=== PATIENT | male | born 2005 | race Caucasian/White ===

== ENCOUNTER 2023-10-14 15:05 | Emergency (ER) | payer OTHER, SELFPAY ==
--- NOTE | ~2023-10-14 | XR_ITS ---
EXAMINATION: [id number] DATE: 10/14/2023 16:00 INDICATION: Left rib pain. TECHNIQUE: A frontal view of the chest and 2 views on 3 radiographs of the left ribs were obtained. COMPARISON: Chest 2 views 12/21/2011 FINDINGS: There is no pneumonia, pleural effusion, or pneumothorax. The heart size is normal. IMPRESSION: 1. No rib fracture. Reviewed, dictated and finalized at location E. T PROJECT MANAGER IMPRESSION: 1. No rib fracture.
[2023-10-14 15:21] VITALS: BP 142/59; PULSE 73; RESP 16; TEMP 37.2; O2SAT 100
--- NOTE | 2023-10-14 15:44 | ED.BACK ---
HPI - Back Pain/Injury General Chief Complaint: Back Pain/Injury Stated Complaint: Left Side Back/Shoulder Pain Time Seen by Provider: 10/14/23 15:44 Source: patient Mode of arrival: ambulatory Limitations: no limitations History of Present Illness HPI Narrative: 18-year-old male presents with complaint of left-sided back pain radiating into left upper back for 3 days. Denies injury but reports that he has lifting all day long at work, sometimes over 50 lb. Patient works for [employer]. Range of motion normal. Taking ibuprofen to treat pain. All systems reviewed and negative except as noted above. Related Data Allergies Allergy/AdvReac Type Severity Reaction Status Date / Time No Known Allergies Allergy Verified 10/14/23 15:11 Review of Systems Review of Systems: CONSTITUTIONAL: Denies fever, chills, or sweats. EYES: Denies visual changes, redness, or discharge. ENT: Denies rhinorrhea, congestion, sore throat, or otalgia. CARDIOVASCULAR: Denies chest pain, palpitations, or edema. RESPIRATORY: Denies cough or dyspnea. GASTROINTESTINAL: Denies abdominal pain, nausea, vomiting, or diarrhea. GENITOURINARY: Denies dysuria or hematuria. SKIN: Denies rash or itching. MUSCULOSKELETAL: Reports left-sided mid and upper back pain. Denies joint pain, or myalgia. NEUROLOGIC: Denies headache, numbness, or weakness. PSYCHIATRIC: Denies anxiety or depression. All other systems reviewed are negative, except as documented in HPI. PMFSH Comments At time of signature, agree with nursing past medical, surgical, social and family history. There is no relevant family history pertinent to the presenting complaint. Exam Narrative: GENERAL: This is a well-nourished, well-developed patient, in no apparent distress. HEAD: normocephalic, atraumatic. EYES: PERRL. Sclera clear/white. Vision is grossly intact. EARS: External ears normal NOSE: External nose normal NECK: Neck supple, non-tender without lymphadenopathy, masses or thyromegaly. CARDIOVASCULAR: Regular rate and rhythm without murmurs, gallops, or rubs. RESPIRATORY: Clear to auscultation. Breath sounds equal bilaterally. No wheezes, rales, or rhonchi. SKIN: warm, Dry, intact with no suspicious lesions or rash, good texture and turgor. NEURO: awake, alert, and oriented to person, place and time. There were no obvious focal neurologic abnormalities. EXTREMITIES: No joint tenderness, effusion, or edema noted. BACK: L posterior and lateral rib pain. tenderness to L rhomboid and trapezius of upper back Course Course Level of Care: Express Care Visit Vital Signs Vital signs: Vital Signs Temperature 37.2 C 10/14/23 15:21 Pulse Rate 73 10/14/23 15:21 Respiratory Rate 16 10/14/23 15:21 Blood Pressure 142/59 H 10/14/23 15:21 Pulse Oximetry 100 10/14/23 15:21 Oxygen Delivery Room Air 10/14/23 15:21 Temperature 37.2 C 10/14/23 15:21 Pulse Rate 73 10/14/23 15:21 Respiratory Rate 16 10/14/23 15:21 Blood Pressure 142/59 H 10/14/23 15:21 Pulse Oximetry 100 10/14/23 15:21 Oxygen Delivery Room Air 10/14/23 15:21 reviewed MDM - Back Pain/Injury MDM Narrative Medical decision making narrative: left rib x-ray negative for fracture. Patient has normal range of motion. Will treat for muscle strain with ibuprofen and methocarbamol. Recommend ice and heat at home. Patient is aware of diagnosis, understands and agrees to treatment plan. Anticipatory guidance given. Patient agrees to follow-up as directed and is aware of reasons to seek care at the emergency department. Portions of this record may have been created with voice recognition software Differential Diagnosis Differential diagnosis: Likely thoracic back pain Imaging Data My impression: Agree with radiologist Radiologist's impression: EXAMINATION: [id number] DATE: 10/14/2023 16:00 INDICATION: Left rib pain. TECHNIQUE: A frontal view of t
== END 2023-10-14 16:35 | disposition home or self-care (01) ==
PROVIDERS: Emergency Provider Nurse Practitioner Family
DX: S29.012A Strain of muscle and tendon of back wall of thorax, initial encounter (principal); X58.XXXA Exposure to other specified factors, initial encounter
CPT/HCPCS: 71101; 99213; G0463

== ENCOUNTER 2024-01-30 21:25 | Emergency (ER) | payer SELFPAY ==
--- NOTE | ~2024-01-30 | CT_ITS ---
EXAMINATION: CT brain wo con DATE: 01/30/2024 22:20 INDICATION: Head injury and photophobia. TECHNIQUE: Computed tomography (CT) of the head was performed without intravenous contrast. Sagittal and coronal reconstructions were performed. The dose-length product was 382.52 mGy-cm. COMPARISON: None FINDINGS: No acute intracranial hemorrhage, acute infarction or abnormal extra axial fluid collection. Ventricl es are normal and symmetric. No mass/mass effect. The orbits, paranasal sinuses and mastoid air cells are normal. IMPRESSION: 1. Normal head CT. Reviewed, dictated and finalized at location A. IMPRESSION: 1. Normal head CT.
--- NOTE | ~2024-01-30 | CT_ITS ---
EXAMINATION: CT cervical spine wo con DATE: 01/30/2024 22:20 INDICATION: Head and neck injury TECHNIQUE: Computed tomography (CT) of the cervical spine was performed without intravenous contrast. Automated exposure control and iterative reconstruction technique were employed. The dose-length pro duct was 382.52 mGy-cm. COMPARISON: None FINDINGS: 7 degrees cervicothoracic levocurvature. Mild reversal of the normal lower cervical lordosis which co uld be positional or due to muscle spasm. Vertebral body heights are normal. No fracture. Disc height s are normal. Cervical facet and uncovertebral joints are unremarkable. No central canal or neural fo raminal stenosis. Cervical soft tissues are unremarkable. Visualized apices of lungs are clear. IMPRESSION: 1. 7 degrees cervicothoracic levocurvature and mild reversal of the normal lower cervical lordosis wh ich could be positional or due to muscle spasm. No other acute osseous abnormality. Reviewed, dictated and finalized at location A. IMPRESSION: 1. 7 degrees cervicothoracic levocurvature and mild reversal of the normal lowe r cervical lordosis which could be positional or due to muscle spasm. No other acute osseous abnormality.
[2024-01-30 21:43] VITALS: BP 150/95; PULSE 84; RESP 16; TEMP 36.9; O2SAT 98
--- NOTE | 2024-01-30 23:54 | ED.GENADULT ---
HPI - General Adult General Chief complaint: Head Injury Stated complaint: possible concussion Time Seen by Provider: 01/30/24 22:47 History of Present Illness HPI narrative: Patient is a 18-year-old gentleman who presents emergency department with chief complaint of head injury. Patient reports that he was in a wrestling competition and was kicked in the head and his head while wrestling. Patient did not remember the incident and did not recall coming to the hospital did report to some nausea and vomiting afterwards were report that starting to improve patient reports no visual changes and is alert oriented currently Related Data Allergies Allergy/AdvReac Type Severity Reaction Status Date / Time No Known Allergies Allergy Verified 01/30/24 21:26 Review of Systems Review of Systems: A 10 system review of systems was completed on the patient and is negative except for what is stated in the HPI. Nursing and ancillary documentation was reviewed. Exam Narrative: GENERAL: Well-appearing, well-nourished, and in no acute distress. HEAD: Normocephalic, atraumatic. EYES: PERRLA and EOMI. Patient has exotropia of the right eye ENT: Nares clear, no rhinorrhea or epistaxis. Mucous membranes moist. NECK: Supple. CHEST: Clear to auscultation. No respiratory distress. HEART: Regular rate and rhythm. No murmur heard. Normal peripheral pulses. ABDOMEN: Soft, nontender, nondistended, normal active bowel sounds. EXTREMITIES: Normal range of motion. No edema. SKIN: Warm, dry, no rash. NEURO: No focal deficits. Alert and oriented x3. PSYCH: Normal mood and affect. Course Vital Signs Vital signs: Vital Signs Temperature 36.9 C 01/30/24 21:43 Pulse Rate 84 01/30/24 21:43 Respiratory Rate 16 01/30/24 21:43 Blood Pressure 150/95 H 01/30/24 21:43 Pulse Oximetry 98 01/30/24 21:43 Temperature 36.9 C 01/30/24 21:43 Pulse Rate 84 01/30/24 21:43 Respiratory Rate 16 01/30/24 21:43 Blood Pressure 150/95 H 01/30/24 21:43 Pulse Oximetry 98 01/30/24 21:43 Medical Decision Making MDM Narrative Medical decision making narrative: Differential diagnosis includes concussion, head injury, intracranial hemorrhage, cervical spine fracture CT head showed no evidence of acute abnormality CT C-spine showed no evidence of fracture. Vital Signs Vital Signs: Vital Signs Temperature 36.9 C 01/30/24 21:43 Pulse Rate 84 01/30/24 21:43 Respiratory Rate 16 01/30/24 21:43 Blood Pressure 150/95 H 01/30/24 21:43 Pulse Oximetry 98 01/30/24 21:43 Temperature 36.9 C 01/30/24 21:43 Pulse Rate 84 01/30/24 21:43 Respiratory Rate 16 01/30/24 21:43 Blood Pressure 150/95 H 01/30/24 21:43 Pulse Oximetry 98 01/30/24 21:43 Discharge Plan Discharge Clinical Impression: Closed head injury, Concussion Patient Disposition: Home, Self-Care Condition: Stable Instructions: Antibiotic Form, Concussion (ED), Head Injury (ED) Prescriptions: No Action methocarbamol 500 mg tablet 500 mg PO Q6H PRN (Reason: muscle pain/spasm) Qty: 30 0RF Follow-up/Referrals: Gomez Roberson MD [Physician] - PHYSICIAN,LOSS CLAIM CLERK [Primary Care Provider] - Time of Disposition: 23:57
[2024-01-30 23:56] VITALS: BP 123/82; PULSE 73; RESP 15; O2SAT 99
== END 2024-01-31 00:06 | disposition home or self-care (01) ==
PROVIDERS: Emergency Provider Emergency Medicine
DX: S06.0XAA Concussion with loss of consciousness status unknown, initial encounter (principal); W51.XXXA Accidental striking against or bumped into by another person, initial encounter; Y93.72 Activity, wrestling
CPT/HCPCS: 70450; 72125; 99284

== ENCOUNTER 2025-01-18 16:01 | Emergency (ER) | payer SELFPAY ==
--- NOTE | ~2025-01-18 | CT_ITS ---
CT abdomen pelvis wo con Ordering provider: Lizette Cary PA-C History: 19 years Male with . R flank pain hematuria . Comparison: None. Technique: CT abdomen and pelvis without IV and without oral contrast. Automated exposure control and iterative reconstruction technique were employed. The dose-length product was 202.10 mGy-cm. Findings: VISUALIZED LOWER CHEST: Normal. UPPER ABDOMINAL ORGANS: Liver: Hepatomegaly. Gallbladder: Normal. Spleen: Normal. Stomach/duodenum: Normal. Pancreas: Normal. Adrenals: Normal. Kidneys: Normal. PELVIC ORGANS: The bladder is underfilled. BOWEL AND MESENTERY: Colon: No evidence of diverticulitis.. No evidence of appendicitis. Small Bowel: Normal. No obstruction. Peritoneum/mesentery: No free air or free fluid. No mesenteric lymphadenopathy. RETROPERITONEUM: Normal aorta. No retroperitoneal lymphadenopathy. MUSCULOSKELETAL: Superficial soft tissues: The superficial soft tissues are normal. Bones: Normal spine. IMPRESSION: 1. No evidence of appendicitis, diverticulitis or intestinal obstruction. 2. Hepatomegaly. Reviewed, dictated and finalized at location A.
[2025-01-18 16:05] VITALS: BP 133/80; PULSE 60; RESP 16; TEMP 36.8; O2SAT 100
--- NOTE | 2025-01-18 16:47 | ED_ITS ---
HPI - Male Genitourinary General Chief complaint: Urogenital-Male <MAYCO Feliciano Last Filed: 01/18/25 16:52> Stated complaint: hematuria <MAYCO Feliciano Last Filed: 01/18/25 16:52> Time Seen by Provider: 01/18/25 16:47 <MAYCO Feliciano Last Filed: 01/18/25 16:52> Focused HPI: Patient is a 19 y/o male who presents to the ED with c/o hematuria. Patient reports he woke up around 330am with blood in his urine. Went to work and continued to have blood in his urine, states it looked like dark tea. Reports mild dysuria. Pain on his R flank for the past couple days. Does note he does independent wrestling and may have injured his back with that. No previous hx of kidney stones. Reports nausea, vomiting this morning. Denies fevers. Denies testicular pain. Denies concern for STDs. GENERAL: Well-appearing, well-nourished, and in no acute distress. HEAD: Normocephalic, atraumatic. CHEST: Clear to auscultation. ?No respiratory distress. HEART: Regular rate and rhythm.? MSK: Mild TTP throughout R lower thoracic region. +CVA on R NEURO: ?Alert and oriented x3. Patient screened in triage and initial orders placed.? ?Additional care and disposition to be based upon?diagnostic testing and treatment. <MAYCO Feliciano Last Filed: 01/18/25 16:52> Source: patient <MAYCO Feliciano Last Filed: 01/18/25 16:52> Mode of arrival: ambulatory <MAYCO Feliciano Last Filed: 01/18/25 16:52> Limitations: no limitations <MAYCO Feliciano Last Filed: 01/18/25 16:52> History of Present Illness HPI Narrative: Agree with the HPI above. Well select at the patient was wrestling and a competition and had exerted himself physically and symptoms start afterwards with some back pain worse on the right flank. No history of kidney stones, no history rhabdomyolysis. Feels dehydrated. <Dalton Infante MD - Last Filed: 01/18/25 18:52> Related Data Allergies/Adverse reactions: Allergies Allergy/AdvReac Type Severity Reaction Status Date / Time No Known Allergies Allergy Verified 01/18/25 17:38 <Lizette Cary PA-C - Last Filed: 01/18/25 16:52> Review of Systems 2 Review of Systems: As reviewed above in HPI <Dalton Infante MD - Last Filed: 01/18/25 18:52> Exam 2 Narrative: GENERAL: Well-appearing, well-nourished, and in no acute distress. HEAD: Normocephalic, atraumatic. CHEST: Clear to auscultation. ?No respiratory distress. HEART: Regular rate and rhythm.? MSK: Mild TTP throughout R lower thoracic region. +CVA on R NEURO: ?Alert and oriented x3. <Dalton Infante MD - Last Filed: 01/18/25 18:52> Course Vital Signs Vital signs: Vital Signs Temperature 36.8 C 01/18/25 16:05 Pulse Rate 60 01/18/25 16:05 Respiratory Rate 16 01/18/25 16:05 Blood Pressure 133/80 01/18/25 16:05 Pulse Oximetry 100 01/18/25 16:05 Oxygen Delivery Room Air 01/18/25 16:05 Temperature 36.8 C 01/18/25 16:05 Pulse Rate 60 01/18/25 16:05 Respiratory Rate 16 01/18/25 16:05 Blood Pressure 133/80 01/18/25 16:05 Pulse Oximetry 100 01/18/25 16:05 Oxygen Delivery Room Air 01/18/25 16:05 <Lizette Cary PA-C - Last Filed: 01/18/25 16:52> Vital Signs Temperature 36.8 C 01/18/25 16:05 Pulse Rate 60 01/18/25 16:05 Respiratory Rate 16 01/18/25 16:05 Blood Pressure 133/80 01/18/25 16:05 Pulse Oximetry 100 01/18/25 16:05 Oxygen Delivery Room Air 01/18/25 16:05 Temperature 36.8 C 01/18/25 16:05 Pulse Rate 60 01/18/25 16:05 Respiratory Rate 16 01/18/25 16:05 Blood Pressure 133/80 01/18/25 16:05 Pulse Oximetry 100 01/18/25 16:05 Oxygen Delivery Room Air 01/18/25 16:05 <Dalton Infante MD - Last Filed: 01/18/25 18:52> MDM - Male Genitourinary MDM Narrative Medical decision making narrative: MSE by ABNER in triage. <Lizette Cary PA-C - Last Filed: 01/18/25 16:52> MSE by ABNER in triage. 19-year-old male presenting with dark urine and back pain. Patient states that he was physically exerting himself over last few days during a wrestling match competition and hurt his back. He has also been having what he described as blood in his urine and provides me a picture with what appears to be potential hematuria verses discoloration from protein such as rhabdomyolysis. He has mild tenderness to palpation reproducible on examination the right CVA but no overlying skin changes. He is hemodynamically stable. States he feels dehydrated and has only membranes. CT scan of the abdomen pelvis without contrast obtained as well as blood work including CBC, CMP, urinalysis and CPK level. Differential diagnosis includes muscle breakdown rhabdomyolysis, kidney stone, hematuria from urinary tract infection, cystitis. Patient CT scan was independently reviewed and also interpreted by Radiology. No signs of any kidney stones, no appendicitis, diverticulitis or intestinal obstruction. He has some mild hepatomegaly. His CPK is negative, normal kidney function, no leukocytosis. No significant anemia. Given patient's urinalysis findings with blood, bacteria and signs of infection he was treated with Rocephin for suspected urinary tract infection with potential hemorrhagic cystitis. His CT scan vitals are reassuring and he can be safely discharged home with a course of Bactrim as well as a dose of Diflucan given the yeast present. Urine culture sent. Follow up with PCP on outpatient basis. Patient presently does not have a PCP so one will be given to him in his discharge instructions. Patient re-evaluated and comfortable with the plan of care, has no history of allergies to antibiotics and safe for discharge at this time. <Dalton Infante MD - Last Filed: 01/18/25 18:52> Medical Records Attestation: I reviewed the patient's medical records. <Dalton Infante MD - Last Filed: 01/18/25 18:52> Lab Data Attestation: I reviewed the patient's lab results. <Dalton Infante MD - Last Filed: 01/18/25 18:52> Result diagrams: 01/18/25 16:52 01/18/25 16:52 <Lizette Cary PA-C - Last Filed: 01/18/25 16:52> Labs: Lab Results 01/18/25 01/18/25 01/18/25 Range/Units 16:52 17:01 17:40 WBC 7.0 (4.5-10.0) K/mm3 RBC 4.73 (4.6-6.20) M/mm3 Hgb 13.8 L (14.0-18.0) g/dL Hct 41.7 L (42.0-52.0) % MCV 88.2 (80-100) fl MCH 29.2 (26-34) pg MCHC 33.1 (32-36) g/dl RDW 12.1 (11.5-14.5) % Plt Count 202 (150-375) k/mm3 MPV 10.2 (7.4-10.4) fl Immature Gran % (Auto) 0.4 (0-0.5) % Neut % (Auto) 67.3 (45.5-73.1) % Lymph % (Auto) 21.8 (18.3-44.2) % [place] % (Auto) 9.7 H (2.6-8.5) % Eos % (Auto) 0.7 (0-4.4) % Baso % (Auto) 0.1 L (0.2-1.2) % Lymph # (Auto) 1.52 (0.9-3.2) K/mm3 [place] # (Auto) 0.7 H (0.1-0.6) K/mm3 Eos # (Auto) 0.1 (0-0.3) K/mm3 Baso # (Auto) 0.0 (0.0-0.1) K/mm3 Abs Immat Gran (auto) 0.03 (0.00-0.031) K/mm3 Absolute Neuts (auto) 4.7 (1.3-6.7) K/mm3 Absolute Nucleated RBC 0.000 (0.0-0.012) K/mm3 Nucleated RBC % 0.0 (0.0-0.2) % Sodium 141 (137-145) mmol/L Potassium 3.8 (3.4-5.0) mmol/L Chloride 103 (98-107) mmol/L Carbon Dioxide 25 (22-30) mmol/L Anion Gap 13 H (4-12) mmol/L BUN 14 (9-20) mg/dL Creatinine 1.08 (0.7-1.3) mg/dL Estim Creat Clear Calc Not Reportable Estimated GFR > 60 (59 - ) Glucose 95 (65-110) mg/dL Calcium 10.0 (8.4-10.2) mg/dL Total Bilirubin 0.5 (0.2-1.3) mg/dL AST 27 (17-59) U/L ALT 17 (6-50) U/L Alkaline Phosphatase 52 (38-126) U/L Total Creatine Kinase 138 (55-170) U/L Total Protein 8.0 (6.3-8.2) g/dL Albumin 4.6 (3.5-5.1) g/dL Urine Color [place] H (Yellow) Urine Appearance Turbid H (Clear) Urine pH 5.5 (5.0-9.0) Ur Specific [place] 1.038 H (1.001-1.035) Urine Protein 2+ H (Negative) mg/dL Urine Glucose (UA) Negative (Negative) mg/dL Urine Ketones 2+ H (Negative) mg/dL Ur Blood (Man) 2+ H (Negative) Urine Nitrate Positive H (Negative) Urine Bilirubin 1+ H (Negative) Urine Urobilinogen 1.0 (<2.0) mg/dL Leukocyte Esterase Rfl 2+ H (Negative) BLUE/UL Urine RBC >100 H (0-2) /hpf Urine WBC 51-100 H (0-3) /hpf Ur Squamous Epith Cells Occasional (Few) /hpf Urine Bacteria None seen /hpf Urine Casts 11-20 Hyaline Casts Present (None) /lpf Urine Yeast (Budding) Present H (None) /hpf <Lizette Cary PA-C - Last Filed: 01/18/25 16:52> Lab Results 01/18/25 01/18/25 01/18/25 Range/Units 16:52 17:01 17:40 WBC 7.0 (4.5-10.0) K/mm3 RBC 4.73 (4.6-6.20) M/mm3 Hgb 13.8 L (14.0-18.0) g/dL Hct 41.7 L (42.0-52.0) % MCV 88.2 (80-100) fl MCH 29.2 (26-34) pg MCHC 33.1 (32-36) g/dl RDW 12.1 (11.5-14.5) % Plt Count 202 (150-375) k/mm3 MPV 10.2 (7.4-10.4) fl Immature Gran % (Auto) 0.4 (0-0.5) % Neut % (Auto) 67.3 (45.5-73.1) % Lymph % (Auto) 21.8 (18.3-44.2) % [place] % (Auto) 9.7 H (2.6-8.5) % Eos % (Auto) 0.7 (0-4.4) % Baso % (Auto) 0.1 L (0.2-1.2) % Lymph # (Auto) 1.52 (0.9-3.2) K/mm3 [place] # (Auto) 0.7 H (0.1-0.6) K/mm3 Eos # (Auto) 0.1 (0-0.3) K/mm3 Baso # (Auto) 0.0 (0.0-0.1) K/mm3 Abs Immat Gran (auto) 0.03 (0.00-0.031) K/mm3 Absolute Neuts (auto) 4.7 (1.3-6.7) K/mm3 Absolute Nucleated RBC 0.000 (0.0-0.012) K/mm3 Nucleated RBC % 0.0 (0.0-0.2) % Sodium 141 (137-145) mmol/L Potassium 3.8 (3.4-5.0) mmol/L Chloride 103 (98-107) mmol/L Carbon Dioxide 25 (22-30) mmol/L Anion Gap 13 H (4-12) mmol/L BUN 14 (9-20) mg/dL Creatinine 1.08 (0.7-1.3) mg/dL Estim Creat Clear Calc Not Reportable Estimated GFR > 60 (59 - ) Glucose 95 (65-110) mg/dL Calcium 10.0 (8.4-10.2) mg/dL Total Bilirubin 0.5 (0.2-1.3) mg/dL AST 27 (17-59) U/L ALT 17 (6-50) U/L Alkaline Phosphatase 52 (38-126) U/L Total Creatine Kinase 138 (55-170) U/L Total Protein 8.0 (6.3-8.2) g/dL Albumin 4.6 (3.5-5.1) g/dL Urine Color [place] H (Yellow) Urine Appearance Turbid H (Clear) Urine pH 5.5 (5.0-9.0) Ur Specific [place] 1.038 H (1.001-1.035) Urine Protein 2+ H (Negative) mg/dL Urine Glucose (UA) Negative (Negative) mg/dL Urine Ketones 2+ H (Negative) mg/dL Ur Blood (Man) 2+ H (Negative) Urine Nitrate Positive H (Negative) Urine Bilirubin 1+ H (Negative) Urine Urobilinogen 1.0 (<2.0) mg/dL Leukocyte Esterase Rfl 2+ H (Negative) BLUE/UL Urine RBC >100 H (0-2) /hpf Urine WBC 51-100 H (0-3) /hpf Ur Squamous Epith Cells Occasional (Few) /hpf Urine Bacteria None seen /hpf Urine Casts 11-20 Hyaline Casts Present (None) /lpf Urine Yeast (Budding) Present H (None) /hpf <Dalton Infante MD - Last Filed: 01/18/25 18:52> Imaging Data Attestation: I personally reviewed and interpreted this imaging study as follows: < Dalton Infante MD - Last Filed: 01/18/25 18:52> My impression: Impressions Abdomen/Pelvis CT 01/18/25 17:09 IMPRESSION: 1. No evidence of appendicitis, diverticulitis or intestinal obstruction. 2. Hepatomegaly. <Dalton Infante MD - Last Filed: 01/18/25 18:52> Discharge Plan Discharge Clinical Impression: Urinary tract infection, Hematuria <Lizette Cary PA-C - Last Filed: 01/18/25 16:52> Patient Disposition: Home <Lizette Cary PA-C - Last Filed: 01/18/25 16:52> Condition: Stable <MAYCO Feliciano Last Filed: 01/18/25 16:52> Instructions: Antibiotic Form, Urinary Tract Infection in Men (ED) <MAYCO Feliciano Last Filed: 01/18/25 16:52> Additional Instructions: Your laboratory studies and CT scan are reassuring but your urinalysis shows evidence of urinary tract infection which could also be causing something called hemorrhagic cystitis given the blood component. We will treat this with antibiotics and refer you to your primary doctor for evaluation on outpatient basis. Return with any persistent, new or worsening emergent concerns. <Lizette Cary PA-C - Last Filed: 01/18/25 16:52> Patient Language: Yoruba <MAYCO Feliciano Last Filed: 01/18/25 16:52> Prescriptions: New sulfamethoxazole-trimethoprim [Bactrim DS] 800-160 mg tablet 1 tablet PO Q12H Qty: 14 0RF No Action methocarbamol 500 mg tablet 500 mg PO Q6H PRN (Reason: muscle pain/spasm) Qty: 30 0RF <Lizette Cary PA-C - Last Filed: 01/18/25 16:52> Follow-up/Referrals: Suhail Castaneda DO [Physician] - 3 Days (Establish PCP) PHYSICIAN,DIRECTOR OF HOTEL OPERATIONS [Primary Care Provider] - <Lizette Cary PA-C - Last Filed: 01/18/25 16:52> Time of Disposition: 18:50 <MAYCO Feliciano Last Filed: 01/18/25 16:52> 18:50 <Dalton Infante MD - Last Filed: 01/18/25 18:52>
[2025-01-18 17:02] LABS: Basophils Percent Auto 0.1 % (0.2-1.2); Eosinophils Absolute Auto 0.1 K/mm3 (0-0.3); Eosinophils Percent Auto 0.7 % (0-4.4); Hematocrit 41.7 % (42.0-52.0); Hemoglobin 13.8 g/dL (14.0-18.0); Immature Granulocyte Absolute 0.03 K/mm3 (0.00-0.031); Immature Granulocyte Percent A 0.4 % (0-0.5); Lymphocytes Absolute Auto 1.52 K/mm3 (0.9-3.2); Lymphocytes Percent Auto 21.8 % (18.3-44.2); Mean Corpuscular HGB Conc 33.1 g/dl (32-36); Mean Corpuscular Hemoglobin 29.2 pg (26-34); Mean Corpuscular Volume 88.2 fl (80-100); Mean Platelet Volume 10.2 fl (7.4-10.4); Monocytes Absolute Auto 0.7 K/mm3 (0.1-0.6); Monocytes Percent Auto 9.7 % (2.6-8.5); Neutrophils Absolute Auto 4.7 K/mm3 (1.3-6.7); Neutrophils Percent Auto 67.3 % (45.5-73.1); Platelet Count Result 202 k/mm3 (150-375); Red Blood Count 4.73 M/mm3 (4.6-6.20); Red Cell Distribution Width 12.1 % (11.5-14.5)
[2025-01-18 17:20] LABS: Bacteria Urine None Seen /hpf; Budding Yeast Urine Present /hpf; Hyaline Casts Urine Present /lpf; RBC Urine >100 /hpf (0-2); Squamous Epithelial Cell Urine Occasional /hpf (Few); WBC Urine 51-100 /hpf (0-3)
[2025-01-18 17:29] LABS: Alanine Aminotransferase 17 U/L (6-50); Albumin Level 4.6 g/dL (3.5-5.1); Alkaline Phosphatase 52 U/L (38-126); Anion Gap 13 mmol/L (4-12); Aspartate Amino Transferase 27 U/L (17-59); Bilirubin,Total 0.5 mg/dL (0.2-1.3); Blood Urea Nitrogen 14 mg/dL (9-20); Carbon Dioxide 25 mmol/L (22-30); Chloride 103 mmol/L (98-107); Estimated Glomerular Filt Rate > 60; Glucose 95 mg/dL (65-110); Potassium 3.8 mmol/L (3.4-5.0); Sodium 141 mmol/L (137-145)
[2025-01-18] MEDS: LACTATED RINGERS 1,000 ML 999 ML IV CONT (17:39)
[2025-01-18 18:05] LABS: Add Urine Microscopic? YES; Appearance Urine Turbid (Clear); Bilirubin Urine 1+ (Negative); Blood Urine 2+ (Negative); Glucose Urine UA Negative (Negative); Ketones Urine 2+ mg/dL (Negative); Leukocyte Esterase Ur 2+ LEU/UL (Negative); Nitrate Urine Positive (Negative); Protein Urine 2+ mg/dL (Negative); Specific Grav Ur 1.038 (1.001-1.035); pH Urine 5.5 (5.0-9.0)
[2025-01-18 18:20] LABS: Creatine Kinase 138 U/L (55-170)
[2025-01-18] MEDS: FLUCONAZOLE 150 MG TABLET PO (18:57)
[2025-01-18 19:18] VITALS: BP 127/86; PULSE 86; RESP 18; TEMP 37.1; O2SAT 100
[2025-01-18 21:10] LABS: Color Urine Dark Amber (Yellow)
== END 2025-01-18 19:20 | disposition home or self-care (01) ==
PROVIDERS: Physician Assistant; Emergency Provider Student in an Organized Health Care Education/Training Program
DX: N39.0 Urinary tract infection, site not specified (principal); R31.9 Hematuria, unspecified; R16.0 Hepatomegaly, not elsewhere classified
CPT/HCPCS: 36415; 74176; 80053; 81001; 82550; 85025; 87086; 96361; 96365; 99284; A9270; J0696; J7120